=== PATIENT | female | born 1995 | race American Indian/Alaskan Native ===

== ENCOUNTER 2019-04-22 05:11 | Outpatient (CLI) | payer MEDICAID ==
[2019-04-22 05:39] VITALS: BP 107/66
== END 2019-04-22 06:29 | disposition home or self-care (01) ==
LOC: TRG 05:11
PROVIDERS: ATTEND Obstetrics & Gynecology
DX: O47.1 False labor at or after 37 completed weeks of gestation (principal); Z3A.38 38 weeks gestation of pregnancy
CPT/HCPCS: 59025

== ENCOUNTER 2019-04-23 22:39 | Inpatient (IN) | payer MEDICAID ==
[2019-04-24] MEDS ORDERED: XYLOCAINE 2% INFILTRATI ONE (01:02)
[2019-04-24] MEDS ORDERED: BRETHINE IVP PRN (01:02)
[2019-04-24] MEDS ORDERED: MINERAL OIL PO PRN (01:02)
[2019-04-24] MEDS ORDERED: BRETHINE SUB-Q PRN (01:02)
[2019-04-24] MEDS ORDERED: ZOFRAN IV PRN ×2 (01:02→06:37)
--- NOTE | 2019-04-24 01:08 | History and Physical Report ---
History of Present Illness Date of examination: 04/24/19 Date of admission: 04/23/19 23:58 Chief complaint: contractions History of present illness: Menstrual History Regularity: regular Menses every: 28 days Duration: 4 LMP: 07/27/2018 LMP reliability: definite LMP character: normal test type: urine test Date: 01/08/2019 BC at conception: none Planned ? no EDC Calculations LMP: 05/03/2019 EDC Confirmation: 05/03/2019 Gestational Age: 23 4/7 weeks Past History : 2 Term Births: 1 Premature Births: 0 Living Children: 1 Para: 1 Mult. Births: 0 Prev : 0 Prev. attempt? 0 Aborta: 0 Elect. Ab: 0 Spont. Ab: 0 Ectopics: 0 # 1 Delivery date: 2011 Weeks Gestation: term labor: no Delivery type: Sex: Male weight: 6#5 Comments: no complications Past Medical History: Negative Past Medical History Past Surgical History: negative Past Medical History Anesthesia Complications: negative Anemia: negative Autoimmune Disorder: negative Bleeding Disorder: negative Blood Transfusions: negative Breast Disease: negative Diabetes: negative Heart Disease: negative Hypertension: negative Hepatitis/Liver Disease: negative Kidney Disease/UTI: negative Neurologic/Epilepsy/Migraines: negative Phlebitis/Varicosities: negative Psychiatric: negative Pulmonary Disease/Asthma: negative Thyroid Disease: negative Hospitalizations: negative 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 of genital herpes: no Partner hx. of genital herpes: no Rash, Viral, or Febrile illness since last LMP? no Varicella/Chicken Pox Status: Immunized TB Risk: no Genetic History Congenital Heart Defect: Mom: no Dad: no Anay Disease: Mom: no Dad: no Thalassemia Mom: no Dad: no Neural Tube Defect Mom: no Dad: no Down's Syndrome Mom: no Dad: no Azael-Sachs Mom: no Dad: no Sickle Cell Disease/Trait Mom: no Dad: no Hemophilia Mom: no Dad: no Muscular Dystrophy Mom: no Dad: no Cystic Fibrosis Mom: no Dad: no [place] Chorea Mom: no Dad: no Mental Retardation Mom: no Dad: no Fragile X Mom: no Dad: no Other Genetic/Chromosomal Disorder Mom: no Dad: no Child w/other defect Mom: no Dad: no Enviromental Exposures Xray Exposure: no Medication, drug, or alcohol use since LMP: no Chemical/Other Exposure: no Exposure to Cat Liter: no Hx of Parvovirus (Fifth Disease): no Occupational Exposure to Children: none Current Allergies (reviewed today): No known allergies Past History Past Medical History: other (see HPI) Past Surgical History: other (see HPI) 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) Family/Genetic History: other (see HPI) Social history: other (see HPI) - Obstetrical History Expected Date of Delivery: 05/03/19 Actual Gestation: 38 Week(s) 5 Day(s) : 2 Para: 1 Hx # Term Pregnancies: 1 Medications and Allergies Allergies Allergy/AdvReac Type Severity Reaction Status Date / Time No Known Allergies Allergy Unverified 04/22/19 06:09 Home Medications Medication Instructions Recorded Confirmed Last Taken Type No Known Home Medications [No 04/22/19 04/22/19 Unknown History Reported Home Medications] Review of Systems All systems: negative Genitourinary: vaginal bleeding (spotting with wiping), leakage of fluid ("discharge"), contractions - Vital Signs Vital signs: Vital Signs Pulse BP Pulse Ox 93 H 112/64 96 04/23/19 22:58 04/23/19 22:58 04/23/19 22:58 Temp Pulse Resp BP Pulse Ox 98.7 F 94 H 18 112/64 98 04/23/19 23:05 04/23/19 23:05 04/23/19 23:05 04/23/19 23:05 04/23/19 23:05 - Physical Exam Breasts: Positive: normal Cardiovascular: Regular rate, Normal S1, Normal S2 Lungs: Positive: Clear to auscultation, Normal air movement Abdomen: Positive: normal appearance, soft, normal bowel sounds. Negative: distention, tenderness Genitourinary (Female): Positive: normal external genitalia, normal perenium Vulva: both: normal Vagina: Positive: normal moisture. Negative: discharge Cervix: Negative: lesion, discharge Uterus: Positive: normal size, normal contour Adnexa: both: normal Anus/Rectum: Positive: normal perianal skin, heme negative. Negative: rectal mass, hemorrhoids Extremities: Deep Tendon Reflex Grade: Normal +2 - Obstetrical FHR: auscultation normal Uterine Contraction Monitor Mode: External Cervical Dilatation: 4.5 Cervical Effacement Percentage: 90 station: -2 Uterine Contraction Pattern: Regular Uterine Tone Measurement Phase: Contraction Uterine Contraction Intensity: Moderate Results Result Diagrams: 04/23/19 00:00 All other labs normal. Assessment and Plan 23 y.o. IUP at 38w4d presents to triage with contractions. She reports they started yesterday, and reported +LOF when she presented to triage yesterday but was sent home and told she was intact and 1 cm. Pt reports pain on and off throughout day, occasional bloody show when wiping, occasional vaginal discharge noted. +FM. She denies any large gush of fluid or continued LOF. SVW on arrival is 4.5/90/-2, IBOW, vtx. Ctx q3-5 min on TOCO, palpating moderate. VSSAF. GBS negative. Patient unsure of pain management plans. Routine admission orders in EMR. Dr. Romo notified of admission. Plan for .
[2019-04-24] MEDS ORDERED: LACTATED RINGERS 1,000 ML ONE (01:21)
[2019-04-24 01:29] LABS: Hematocrit 37.3 % (30.3-42.9); Hemoglobin 12.5 gm/dl (10.1-14.3); Mean Corpuscular HGB Conc 34 % (30-34); Mean Corpuscular Volume 96 fl (79-97); Red Blood Count 3.91 M/mm3 (3.65-5.03); Red Cell Distribution Width 13.3 % (13.2-15.2)
[2019-04-24] MEDS: LACTATED RINGERS 1,000 ML IV SCH ×2 (01:29→02:20)
[2019-04-24 01:38] LABS: Platelet Count 236 K/mm3 (140-440)
[2019-04-24] MEDS ORDERED: SUBLIMAZE ONE (01:54)
[2019-04-24] MEDS ORDERED: SUBLIMAZE IV ONE (01:56)
[2019-04-24] MEDS ORDERED: PITOCin/NS 20 UNIT/1000ML DRIP 20 UNITS/1,000 ML BAG IV SCH ×2 (02:00→07:00)
[2019-04-24] MEDS ORDERED: NARCAN 2 MG/2 ML IV PRN (02:43)
--- NOTE | 2019-04-24 02:43 | Anesthesia Consultation ---
Anesthesia Consult and Med Hx Date of service: 04/24/19 - Airway Anesthetic Teeth Evaluation: Good ROM Head & Neck: Adequate Mental/Hyoid Distance: Adequate Mallampati Class: Class II Intubation Access Assessment: Probably Good - Pre-Operative Health Status ASA Pre-Surgery Classification: ASA2 Proposed Anesthetic Plan: Epidural, Spinal - Pulmonary Hx Asthma: No - Cardiovascular System Hx Hypertension: No - Central Nervous System Hx Seizures: No Hx Psychiatric Problems: No - Endocrine Hx Renal Disease: No Hx Hypothyroidism: No Hx Hyperthyroidism: No - Hematic Hx Anemia: Yes Hx Sickle Cell Disease: No - Other Systems Hx Alcohol Use: Yes (before )
[2019-04-24] MEDS ORDERED: fentaNYL-BUPIV 2 MCG/ML-0.125% 200 MCG/100 ML BAG EPIDURAL SCH (03:00)
--- NOTE | 2019-04-24 03:20 | Event Note ---
Date: 04/24/19 Pt comfortable s/p epidural placement. SVE /-1. DWP pros and cons of AROM, patient agrees to proceed. AROM clear fluid. tolerated well. Will plan to start pitocin.
[2019-04-24] MEDS ORDERED: PITOCin/NS 30 UNIT/500ML 30 UNITS/500 ML BAG IV SCH (04:00)
--- NOTE | 2019-04-24 06:36 | Procedure Note ---
OB Delivery Note - Delivery Date of Delivery: 04/24/19 Motorsports Technician: ANNAMARIE WHITE Estimated blood loss: 200cc - Vaginal Delivery presentation: vertex Delivery position: OA Intrapartum events: none Delivery induction: none Delivery augmentation: rupture of membranes, pitocin Delivery monitor: external FHT, external uterine Route of delivery: Delivery placenta: spontaneous Delivery cord: 3 umbilical vessels Episiotomy: none Delivery laceration: 1st degree Delivery repair: vicryl Anesthesia: epidural Delivery comments: of viable male infant over intact perineum. Infant placed on mother's abdomen, drying and tactile stimulation produced vigorous cry. Cord clamped and cut x2 upon cessation of pulsation and cut by RN. Placenta delivered complete and intact, 3vc. Pitocin to IV. Fundus is firm, ML. 1st degree perineal laceration repaired in normal fashion. Hemostasis achieved. VSSAF. Mother r eports being comfortable. Amairani care provided. Infant apgars 8/9, weight 7#1. Mother and remain LDR stable. - Infant A at 1 minute: 8 at 5 minutes: 9 Infant Gender: Male (7#1)
[2019-04-24] MEDS ORDERED: MILK OF MAGNESIA PO PRN (06:37)
[2019-04-24] MEDS ORDERED: BENADRYL PO PRN (06:37)
[2019-04-24] MEDS ORDERED: DULCOLAX PR PRN (06:37)
[2019-04-24] MEDS ORDERED: TYLENOL PO PRN (06:37)
[2019-04-24] MEDS ORDERED: TUCKS PAD TP PRN (06:37)
[2019-04-24] MEDS ORDERED: LANSINOH TP PRN (06:37)
[2019-04-24] MEDS ORDERED: PHENERGAN PO PRN (06:37)
[2019-04-24] MEDS ORDERED: SODIUM CHLORIDE FLUSH SYRINGE 10 ML IV NR (07:00)
[2019-04-24] MEDS: PRENATAL VITAMIN PO SCH (09:48)
[2019-04-24] MEDS: IBUPROFEN PO SCH ×2 (09:48→17:28)
[2019-04-24 18:47] LABS: Hematocrit 39.2 % (30.3-42.9); Hemoglobin 13.2 gm/dl (10.1-14.3)
[2019-04-25] MEDS: IBUPROFEN PO SCH ×3 (00:14→12:15)
[2019-04-25] MEDS ORDERED: BOOSTRIX IM ONE (06:00)
--- NOTE | 2019-04-25 09:03 | Discharge Summary ---
Providers - Providers Date of Admission: 04/23/19 23:58 Date of discharge: 04/25/19 Attending physician: ELMA FLANNERY 04/24/19 06:39 Consult to Examining Officer [CONS] Routine Reason For Exam: assistance with , SNS Primary care physician: ELMA FLANNERY Hospitalization Reason for admission: labor Condition: Good Pertinent studies: post delivery H&H 13.2/39.2 Procedures: Hospital course: uncomplicated delivery and course Disposition: DC-01 TO HOME OR SELFCARE Core Measure Documentation - Palliative Care Palliative Care/ Comfort Measures: Not Applicable - Core Measures Any of the following diagnoses?: none Exam - Constitutional Vitals: Temp Pulse Resp BP Pulse Ox 97.6 F 59 L 18 93/48 98 04/25/19 07:46 04/25/19 07:46 04/25/19 07:46 04/25/19 07:46 04/25/19 07:46 General appearance: Present: no acute distress, well-nourished - EENT Eyes: Present: PERRL ENT: hearing intact, clear oral mucosa - Neck Neck: Present: supple, normal ROM - Respiratory Respiratory effort: normal Respiratory: bilateral: CTA - Cardiovascular Heart Sounds: Present: S1 & S2. Absent: rub, click - Extremities Extremities: pulses symmetrical, No edema Peripheral Pulses: within normal limits - Abdominal General gastrointestinal: Present: soft, non-tender, non-distended, normal bowel sounds Female genitourinary: Present: normal - Integumentary Integumentary: Present: clear, warm, dry - Musculoskeletal Musculoskeletal: gait normal, strength equal bilaterally - Psychiatric Psychiatric: appropriate mood/affect, intact judgment & insight - Neurologic Neurologic: CNII-XII intact, moves all extremities - Additional findings Additional findings: Fundus firm, ML, U/1. Vaginal bleeding is small, patient denies any heavy bleeding or clots. Patient reports pain is well controlled with medication. She denies any complaints or concerns. VSSAF. Reviewed recent labs with patient, she denies any dizziness or feeling faint with ambulation or position changes. Pt reports is going well, no breast complaints. She reports infant is doing well. Encouraged increase in water intake. Plan Activity: no restrictions Diet: regular Wound: open to air, keep clean and dry Follow up with: ELMA FLANNERY MD [Primary Care Provider] - 05/23/19 (Congratulations! Please call [phone] to schedule your appointment in 4 weeks. Please schedule your son's circumcision appointment in 1 week. Bring EMLA cream prescription with you to his appointment and await further instructions for use. Call with any questions or concerns. ) Prescriptions: Lidocain2.5%/Prilocai2.5% [Emla] 5 gm TP ONCE #1 tube
[2019-04-25] MEDS: PRENATAL VITAMIN PO SCH (10:19)
[2019-04-25 12:28] VITALS: BP 109/69
== END 2019-04-25 15:00 | disposition home or self-care (01) | DRG 775 ==
LOC: TRG 22:39 → LD 23:58 → OB 04-24 08:15
PROVIDERS: ADMIT Obstetrics & Gynecology; ATTEND Obstetrics & Gynecology
PROC: 10E0XZZ Delivery of Products of Conception, External Approach (ICD-10-PCS; principal; 2019-04-24)
PROC: 0HQ9XZZ Repair Perineum Skin, External Approach (ICD-10-PCS; 2019-04-24)
PROC: 3E0R3BZ Introduction of Anesthetic Agent into Spinal Canal, Percutaneous Approach (ICD-10-PCS; 2019-04-24)
PROC: 00HU33Z Insertion of Infusion Device into Spinal Canal, Percutaneous Approach (ICD-10-PCS; 2019-04-24)
PROC: 10907ZC Drainage of Amniotic Fluid, Therapeutic from Products of Conception, Via Natural or Artificial Opening (ICD-10-PCS; 2019-04-24)
DX: O70.0 First degree perineal laceration during delivery (principal); O80 Encounter for full-term uncomplicated delivery; Z3A.38 38 weeks gestation of pregnancy; Z37.0 Single live birth; Z83.3 Family history of diabetes mellitus; Z82.49 Family history of ischemic heart disease and other diseases of the circulatory system
CPT/HCPCS: 36415; 59025; 85014; 85018; 85027; 86592; 86850; 86900; 86901; G0378; A6250; J2590; J3010; J7120